=== PATIENT | male | born 1970 | race Caucasian/White ===

== ENCOUNTER → 2016-08-10 | Outpatient (CLI) | payer OTHER ==
[2016-08-10 15:25] LABS: ABSOLUTE BASOPHILS # (AUTO) 0.1 10^3/uL (0.0-0.2); ABSOLUTE EOSINOPHILS # (AUTO) 0.4 10^3/uL (0.0-0.6); ABSOLUTE LYMPHOCYTES (AUTO) 2.5 10^3/uL (0.5-4.7); ABSOLUTE MONOCYTES (AUTO) 0.6 10^3/uL (0.1-1.4); ABSOLUTE NEUT (AUTO) 3.7 10^3/uL (1.7-8.2); BASOPHILS % (AUTO) 0.9 % (0-2); HEMATOCRIT 40.1 % (37.9-51.0); HGB HCT DIFFERENCE 1.9; LYMPHOCYTES % (AUTO) 34.2 % (13-45); MEAN CORPUSCULAR HEMOGLOBIN 28.2 pg (27.0-33.4); MEAN CORPUSCULAR VOLUME 81 fl (80-97); MONOCYTES % (AUTO) 8.8 % (3-13); RED BLOOD COUNT 4.97 10^6/uL (4.35-5.55); RED CELL DISTRIBUTION WIDTH 13.1 % (11.5-14.0); SEGMENTED NEUTROPHILS % (AUTO) 50.1 % (42-78); WHITE BLOOD COUNT 7.4 10^3/uL (4.0-10.5)
[2016-08-10 15:29] LABS: APPEARANCE,URINE CLEAR; BILIRUBIN,URINE NEGATIVE (NEGATIVE); GLUCOSE, URINE NEGATIVE (NEGATIVE); KETONES,URINE NEGATIVE (NEGATIVE); LEUKOCYTE ESTERASE,URINE NEGATIVE (NEGATIVE); NITRITE,URINE NEGATIVE (NEGATIVE); PROTEIN,URINE NEGATIVE (NEGATIVE); URINE SPECIFIC GRAVITY 1.006; UROBILINOGEN,URINE NEGATIVE mg/dL (<2.0)
[2016-08-10 15:33] LABS: PROTHROMBIN TIME 12.6 SEC (11.4-15.4)
== END ==
LOC: OD 14:46
PROVIDERS: ATTEND Pain Medicine Interventional Pain Medicine
DX: Z79.1 Long term (current) use of non-steroidal anti-inflammatories (NSAID) (principal)
CPT/HCPCS: 36415; 81001; 85025; 85610; 85730

== ENCOUNTER 2016-10-04 07:43 | Day surgery (SDC) | payer OTHER ==
[2016-09-28 13:34] LABS: APPEARANCE,URINE CLEAR; BILIRUBIN,URINE NEGATIVE (NEGATIVE); GLUCOSE, URINE NEGATIVE (NEGATIVE); KETONES,URINE NEGATIVE (NEGATIVE); LEUKOCYTE ESTERASE,URINE NEGATIVE (NEGATIVE); NITRITE,URINE NEGATIVE (NEGATIVE); PROTEIN,URINE NEGATIVE (NEGATIVE); UROBILINOGEN,URINE NEGATIVE mg/dL (<2.0)
[2016-09-28 13:43] LABS: HEMATOCRIT 44.9 % (37.9-51.0); HEMOGLOBIN 15.3 g/dL (13.5-17.0); MEAN CORPUSCULAR HEMOGLOBIN 27.8 pg (27.0-33.4); MEAN CORPUSCULAR HGB CONC 34.2 g/dL (32.0-36.0); MEAN CORPUSCULAR VOLUME 82 fl (80-97); RED BLOOD COUNT 5.51 10^6/uL (4.35-5.55); RED CELL DISTRIBUTION WIDTH 13.6 % (11.5-14.0); WHITE BLOOD COUNT 6.9 10^3/uL (4.0-10.5)
[2016-09-28 13:47] LABS: PROTHROMBIN TIME 12.1 SEC (11.4-15.4)
[2016-09-28 13:48] LABS: PARTIAL THROMBOPLASTIN TIME 31.3 SEC (23.5-35.8)
--- NOTE | 2016-09-28 20:13 | EKG REPORT ---
SEVERITY:- BORDERLINE ECG - SINUS RHYTHM NON-SPECIFIC ST-T CHANGES INFERIOR LEADS. : Confirmed by: Gen Perdomo MD 28-Sep-2016 20:12:40
[~2016-10-04 07:43] MED LIST: BUPIVACAINE HCL 0.25% /EPINEPHRINE INJ/PF 30 ML SDV ONE; CEFAZOLIN 1 GM/D5W RTU 1 GM/50 ML RTUPB IV PRN; LIDOCAINE 0.5% INJ-PF (5 MG/ML) 50 ML SDV INJ PRN; LIDOCAINE 1% INJ-PF (10 MG/ML) 30 ML SDV ONE; RINGERS SOLUTION,LACTATED 1,000 ML IV PRN; SODIUM BICARBONATE 8.4% INJ 50 MEQ/50 ML DISP.SYRIN ONE
[2016-10-04] MEDS ORDERED: FENTANYL CITRATE INJ/PF 100 MCG/2 ML AMPUL ONE (10:10)
[2016-10-04] MEDS ORDERED: MIDAZOLAM 2 MG/2 ML INJ ONE (10:10)
[2016-10-04] MEDS ORDERED: PROPOFOL INJ 200 MG/20 ML VIAL IV ONE (10:11)
[2016-10-04] MEDS ORDERED: DEXMEDETOMIDINE INJ 80 MCG/20 ML VIAL IV ONE (10:11)
[2016-10-04] MEDS ORDERED: ACETAMINOPHEN 100 ML IV ONE (10:11)
[2016-10-04] MEDS ORDERED: PROMETHAZINE HCL INJ 25 MG/1 ML VIAL IV PRN ×2 (10:48)
[2016-10-04] MEDS ORDERED: MEPERIDINE HCL/PF INJ 25 MG/1 ML DISP.SYRIN IV PRN (10:48)
[2016-10-04] MEDS ORDERED: FENTANYL CITRATE INJ/PF 100 MCG/2 ML AMPUL IV PRN ×3 (10:48)
[2016-10-04] MEDS ORDERED: DIPHENHYDRAMINE HCL 50 MG/ML VIAL IV PRN (10:48)
[2016-10-04] MEDS ORDERED: OXYCODONE-ACETAMINOPHEN 5-325 MG TABLET PO PRN ×3 (10:48→12:20)
[2016-10-04] MEDS ORDERED: MORPHINE SULFATE 10 MG/ML INJ IV PRN (10:48)
[2016-10-04] MEDS ORDERED: CEFAZOLIN INJ 1 GM VIAL ONE (11:54)
[2016-10-04] MEDS ORDERED: BUPIVACAINE HCL 0.25% /EPINEPHRINE INJ/PF 30 ML SDV ONE (12:19)
--- NOTE | 2016-10-04 13:08 | OPERATIVE REPORT E ---
Operative Report NAME: KIM ZHOU : 1970 AGE: 46Y DATE OF SURGERY: 10/04/2016 ROOM: PREOPERATIVE DIAGNOSIS: LUMBAR RADICULOPATHY LOWER EXTREMITIES WITH CHRONIC INTRACTABLE BACK AND LOWER EXTREMITY PAIN. POSTOPERATIVE DIAGNOSIS: LUMBAR RADICULOPATHY LOWER EXTREMITIES WITH CHRONIC INTRACTABLE BACK AND LOWER EXTREMITY PAIN. OPERATION: 1. Surgical implantation of right and left spinal cord stimulating leads up to the top of T8 under fluoroscopic guidance. 2. Implantation of programmable rechargeable pulse generator and fluoroscopy for placement of needles and wire guidance. SURGEON: BRINA DOWELL M.D. ANESTHESIA: MAC. COMPLICATIONS: None. MEDICAL TECHNOLOGIST PRN: Dwayne Nuñez MD BLOOD LOSS: Minimal/10 mL. TISSUE REMOVED OR ALTERED: None. INDICATIONS: Chronic intractable pain with successful outpatient spinal cord stimulation trial. PROCEDURAL NOTE: After obtaining informed consent, advising the patient of the risks and benefits including serious neurological injury, failure to achieve pain relief, bleeding, infection, allergic reaction, chronic neurological injury, paralysis and , he was taken to the operating room and placed comfortably in the prone position. Comfort was assessed visually and verbally. MAC anesthesia was administered. His thoracic, lumbar and superior gluteal regions were prepped with chlorhexidine x2. This was allowed to dry for 3 minutes as required for fire safety. He was then draped in the usual and customary fashion. It should be noted that the pulse generator pocket site had been predetermined and marked over the right gluteal region. Fluoroscopy was used after draping to identify the insertion site with the target of entrance at T12-L1. Once this skin entrance site was identified over the lumbar region, the skin area was anesthetized with 1% lidocaine with bicarbonate, followed by 0.25% bupivacaine with epinephrine. Sharp and blunt dissection were performed down the lumbar fashion. A suitable working region was created. The patient remained comfortable. Beginning on the left side, the paraspinal musculature was anesthetized down to the T12-L1 interspace and this was repeated at the right. Then 14-gauge Tuohy needles were placed using loss of resistance to saline technique, beginning on the left and then the right. Octrodes were then placed through each of the needles and guided up to the top of the T8 region. Stimulation trialing was initiated. With some lead adjustment, the stimulation pattern was in the suitable location and providing comfort to the patient. The decision was made to implant at that time. At this time, Dr. Nuñez began creation of the pulse generator pocket site and anesthetization of the tunnel region from the pocket site to the lumbar incision. Blunt and sharp dissection were used in that region as well with electrocautery as necessary. Pursestrings were placed around each of the needles, followed by distal anchor stitches using 0 Mersilene. Beginning on the left, the needle was removed as was the Stylette. Care was taken not to move the electrode as determined by x-ray position. It should be noted that lateral views were taken periodically throughout the procedure to assure safe location in the posterior region of the epidural interspace. On the left once the pursestring was secured, the anchor was placed over the lead and secured. Both pursestring and anchor stitches were used to secure the anchor in its location. The hex nut was then secured. This was repeated on the right. The leads were then tunneled with remaining a small coil in the back for relief with activity. The leads were connected to the pulse generator. Impedance was checked and found to be satisfactory. All hex nuts were secured at that location as well. All wounds were copiously irrigated with Betadine-containing irrigation solution. Each wound was then closed using an inverted 3-0 Polysorb mattress suture. Once the skin edges were successfully closed, several neel were placed at each location followed by Dermabond cement and tape. Once the cement and tape were allowed to dry, Op-Site sponge dressings were placed over this. The patient tolerated this well. Lead position was checked and found satisfactory and no movement during securing of the leads. He was then taken to the PACU for further postoperative care and monitoring. DICTATING PHYSICIAN: BRINA DOWELL M.D. [id number] PHY#: [id number] ID: [id number] JOB#: [id number] ACCT: [id number] cc:BRINA DOWELL M.D. >
[2016-10-04] MEDS ORDERED: DEXAMETHASONE SOD PHOSPHATE INJ 4 MG/1 ML VIAL ONE (14:17)
[2016-10-04] MEDS ORDERED: KETOROLAC TROMETHAMINE 60 MG/2 ML SDV ONE (14:17)
[2016-10-04] MEDS ORDERED: ONDANSETRON HCL INJ/PF 4 MG/2 ML SDV ONE ×2 (14:17→14:18)
[2016-10-04] MEDS ORDERED: LIDOCAINE 2% INJ-PF (20 MG/ML) 10 ML AMPUL ONE ×2 (14:17→14:18)
[2016-10-04] MEDS ORDERED: METOCLOPRAMIDE HCL INJ/PF 10 MG/2 ML SDV ONE (14:18)
[2016-10-04 16:16] VITALS: BP 113/71
== END 2016-10-04 14:25 | disposition home or self-care (01) ==
LOC: OROUT 07:43
PROVIDERS: ATTEND Pain Medicine Interventional Pain Medicine
PROC: 00HU3MZ Insertion of Neurostimulator Lead into Spinal Canal, Percutaneous Approach (ICD-10-PCS; 2016-10-04)
PROC: 0JH70MZ Insertion of Stimulator Generator into Back Subcutaneous Tissue and Fascia, Open Approach (ICD-10-PCS; principal; 2016-10-04 10:00)
DX: M54.16 Radiculopathy, lumbar region (principal); M51.36 Other intervertebral disc degeneration, lumbar region; M47.817 Spondylosis without myelopathy or radiculopathy, lumbosacral region; M51.26 Other intervertebral disc displacement, lumbar region; G89.4 Chronic pain syndrome; E78.00 Pure hypercholesterolemia, unspecified; F43.10 Post-traumatic stress disorder, unspecified; F41.9 Anxiety disorder, unspecified; F32.9 Major depressive disorder, single episode, unspecified; F17.210 Nicotine dependence, cigarettes, uncomplicated; G47.30 Sleep apnea, unspecified; K21.9 Gastro-esophageal reflux disease without esophagitis; Z79.891 Long term (current) use of opiate analgesic; Z79.899 Other long term (current) drug therapy; Z79.1 Long term (current) use of non-steroidal anti-inflammatories (NSAID); Z88.8 Allergy status to other drugs, medicaments and biological substances
CPT/HCPCS: 93005; 36415; 85027; 85610; 85730; 81001; 71020; 72080; 93010; 63685; 63650; C1820; C1778; J2250; J3490 ×5; J0690 ×2; J1100; J1885; J3010; J2765; J2405; J2704; J0131; 300